=== PATIENT | female | born 1975 | race Native Hawaiian/Other Pacific Islander ===

== ENCOUNTER 2022-04-23 13:09 | Emergency (ER) | payer OTHER ==
--- NOTE | 2022-04-23 13:11 | ERPHSYRPT ---
- History of Present Illness Time Seen by Provider: 04/23/22 13:11 Historian: patient Exam Limitations: no limitations Physician History: This is an overweight 47-year-old white female has a history of diverticulitis and presents with 1 week history of upper abdominal pain. It is sharp and crampy. It is in the exact same place and described in the exact same way as h er other episode of diverticulitis. Patient denies diarrhea. She denies nausea vomiting. She has no chest pain. She does not have shortness of breath. Patient was dropped off by family member. Patient states she has some problems with codeine but has never had a problem with hydrocodone and Dilaudid in the past. Patient has a history of hypertension and hypothyroidism. The patient states that the pain has worsened over the last week. She stated that she had extensive work-up in the past and the diagnosis was diverticulitis. Timing/Duration: week(s) (1) Abdominal Pain Onset Location: RUQ, LUQ, epigastric Pain Radiation: no radiation Severity of Pain-Max: moderate Severity of Pain-Current: moderate Modifying Factors: Improves With: nothing Associated Symptoms: denies symptoms Previous symptoms: same symptoms as today, no recent treatment Allergies/Adverse Reactions: codeine Allergy (Verified 04/23/22 13:27) Home Medications: Levothyroxine Sodium 1 ea DAILY 04/23/22 [History] Lisinopril 10 mg [Zestril 10 MG] 10 mg PO DAILY 04/23/22 [History] Ropinirole HCl 1 mg PO DAILY 04/23/22 [History] Travel Risk - International Travel Have you traveled outside of the country in past 3 weeks: No - Coronavirus Screening Are you exhibiting any of the following symptoms?: No Close contact with a COVID-19 positive Pt in past 14-21 Days: No - Review of Systems Constitutional: No Symptoms Eyes: No Symptoms Ears, Nose, & Throat: No Symptoms Respiratory: No Symptoms Cardiac: No Symptoms Abdominal/Gastrointestinal: Abdominal Pain Genitourinary Symptoms: No Symptoms (Bilateral upper quadrants and epigastric region) Musculoskeletal: No Symptoms Skin: No Symptoms Neurological: No Symptoms Psychological: No Symptoms Endocrine: No Symptoms Hematologic/Lymphatic: No Symptoms Immunological/Allergic: No Symptoms All Other Systems: Reviewed and Negative - Past Medical History Pertinent Past Medical History: Yes - Past Surgical History Past Surgical History: Yes - Nursing Vital Signs Nursing Vital Signs: Initial Vital Signs Temperature 98.0 F 04/23/22 13:33 Pulse Rate 70 04/23/22 13:33 Respiratory Rate 18 04/23/22 13:33 Blood Pressure 110/74 04/23/22 13:33 O2 Sat by Pulse Oximetry 100 04/23/22 13:33 Pain Scale Pain Intensity 8 - Physical Exam General Appearance: no apparent distress, alert, anxiety, obese Eye Exam: PERRL/EOMI, eyes nml inspection Ears, Nose, Throat Exam: normal ENT inspection, moist mucous membranes Neck Exam: normal inspection, non-tender, supple, full range of motion Respiratory Exam: normal breath sounds, lungs clear, airway intact, No chest tenderness, No respiratory distress Cardiovascular Exam: regular rate/rhythm, normal heart sounds, normal peripheral pulses Gastrointestinal/Abdomen Exam: soft, normal bowel sounds, tenderness (Bilateral upper quadrants and epigastric region to palpation), guarding (Palpation of bilateral upper quadrants and epigastric region) Pelvic Exam: not done Rectal Exam: not done Back Exam: normal inspection, normal range of motion, No CVA tenderness, No vert ebral tenderness Extremity Exam: normal inspection, normal range of motion, pelvis stable Neurologic Exam: alert, oriented x 3, cooperative, 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 as tested, normal mood/affect, nml cerebellar function, nml station & gait, sensation nml Skin Exam: normal color, warm, dry Lymphatic Exam: No adenopathy SpO2 Interpretation: normal O2 Delivery: Room Air - Course Nursing assessment & vital signs reviewed: Yes Ordered Tests: Active Orders 24 hr Category Date Time Status IV Insertion STAT Care 04/23/22 13:53 Active ABDOMEN AND PELVIS W/0 CONTRAS [CT] Stat Exams 04/23/22 13:53 Completed AMYLASE Stat Lab 04/23/22 13:52 Completed CBC W DIFF Stat Lab 04/23/22 13:52 Completed CMP Stat Lab 04/23/22 13:52 Completed LIPASE Stat Lab 04/23/22 13:52 Completed Lactic Acid Stat Lab 04/23/22 13:59 Completed UA W/RFX CULTURE Stat Lab 04/23/22 Completed Medication Summary Generic Name Dose Route Start Last Admin Trade Name Freq PRN Reason Stop Dose Admin Sodium Chloride 1,000 mls @ 999 mls/hr 04/23/22 13:53 Sodium Chloride 0.9% 1000 Ml IV 04/23/22 14:53 .[id number] STA Discontinued Medications Generic Name Dose Route Start Last Admin Trade Name Jarethq PRN Reason Stop Dose Admin Hydromorphone HCl 1 mg 04/23/22 13:53 Hydromorphone 1 Mg/1ml Inj 1 Mg/Ml Syringe IV 04/23/22 13:54 STAT ONE Ondansetron HCl 4 mg 04/23/22 13:53 Ondansetron Hcl 4 Mg/2 Ml Vial IV 04/23/22 13:54 STAT ONE Lab/Rad Data: Laboratory Result Diagrams 04/23/22 13:52 04/23/22 13:52 Laboratory Results 04/23/22 04/23/22 04/23/22 Range/Units Unknown 13:59 13:52 WBC (4.0-10.5) x10^3/uL RBC (4.1-5.4) x10^6/uL Hgb (12.0-16.0) g/dL Hct (35-47) % MCV (78-100) fL MCH (26-32) pg MCHC (32-36) g/dL RDW (11.5-14.0) % Plt Count (150-450) x10^3/uL MPV (7.5-11.0) fL Gran % (36.0-66.0) % Immature Gran % (Auto) (0.00-0.4) % Nucleat RBC Rel Count (0.00-0.1) % Eos # (Auto) (0-0.5) x10^3/uL Immature Gran # (Auto) (0.00-0.03) x10^3u/L Absolute Lymphs (auto) (1.0-4.6) x10^3/uL Absolute Monos (auto) (0.0-1.3) x10^3/uL Absolute Nucleated RBC (0.00-0.01) x10^3u/L Lymphocytes % (24.0-44.0) % Monocytes % (0.0-12.0) % Eosinophils % (0.00-5.0) % Basophils % (0.0-0.4) % Absolute Granulocytes (1.4-6.9) x10^3/uL Basophils # (0-0.4) x10^3/uL Sodium 136 L (137-145) mmol/L Potassium 4.0 (3.5-5.1) mmol/L Chloride 105 (98-107) mmol/L Carbon Dioxide 26 (22-30) mmol/L Anion Gap 9.6 (5-15) MEQ/L BUN 13 (7-17) mg/dL Creatinine 0.71 (0.52-1.04) mg/dL Estimated GFR > 60.0 ML/MIN Glucose 74 (74-106) mg/dL Lactic Acid 0.6 (0.4-2.0) Calcium 9.1 (8.4-10.2) mg/dL Total Bilirubin 0.50 (0.2-1.3) mg/dL AST 52 H (14-36) U/L ALT 40 H (0-35) U/L Alkaline Phosphatase 108 (38-126) U/L Serum Total Protein 7.8 (6.3-8.2) g/dL Albumin 4.1 (3.5-5.0) g/dL Amylase 50 (30-110) U/L Lipase 139 (23-300) U/L Urinalys Dipstick Clnc MAIN LAB Urine Color YELLOW (YELLOW) Urine Appearance CLEAR (CLEAR) Urine pH 5.5 (5-6) Ur Specific [place] >=1.030 A (1.005-1.025) POC Urine Protein Conf NEGATIVE (Negative) Urine Ketones NEGATIVE (NEGATIVE) Urine Nitrite NEGATIVE (NEGATIVE) Urine Bilirubin NEGATIVE (NEGATIVE) Urine Urobilinogen 0.2 (0-1) mg/dL Urine Leukocytes NEGATIVE (NEGATIVE) Urine WBC (Auto) 0-2 (0-5) /HPF Urine RBC (Auto) NONE (0-2) /HPF U Epithel Cells (Auto) RARE (FEW) /HPF Urine Bacteria (Auto) RARE (NEGATIVE) /HPF Urine RBC NEGATIVE (0-5) Jeremie/ul Urine Mucus (Auto) SLIGHT A (NEGATIVE) /HPF Ur Culture Indicated? NO Urine Glucose NEGATIVE (NEGATIVE) mg/dL 04/23/22 Range/Units 13:52 WBC 5.3 (4.0-10.5) x10^3/uL RBC 3.99 L (4.1-5.4) x10^6/uL Hgb 12.3 (12.0-16.0) g/dL Hct 38.1 (35-47) % MCV 95.5 (78-100) fL MCH 30.8 (26-32) pg MCHC 32.3 (32-36) g/dL RDW 13.0 (11.5-14.0) % Plt Count 92 L (150-450) x10^3/uL MPV 12.2 H (7.5-11.0) fL Gran % 53.8 (36.0-66.0) % Immature Gran % (Auto) 0.2 (0.00-0.4) % Nucleat RBC Rel Count 0.0 (0.00-0.1) % Eos # (Auto) 0.03 (0-0.5) x10^3/uL Immature Gran # (Auto) 0.01 (0.00-0.03) x10^3u/L Absolute Lymphs (auto) 1.94 (1.0-4.6) x10^3/uL Absolute Monos (auto) 0.45 (0.0-1.3) x10^3/uL Absolute Nucleated RBC 0.00 (0.00-0.01) x10^3u/L Lymphocytes % 36.5 (24.0-44.0) % Monocytes % 8.5 (0.0-12.0) % Eosinophils % 0.6 (0.00-5.0) % Basophils % 0.4 (0.0-0.4) % Absolute Granulocytes 2.86 (1.4-6.9) x10^3/uL Basophils # 0.02 (0-0.4) x10^3/uL Sodium (137-145) mmol/L Potassium (3.5-5.1) mmol/L Chloride (98-107) mmol/L Carbon Dioxide (22-30) mmol/L Anion Gap (5-15) MEQ/L BUN (7-17) mg/dL Creatinine (0.52-1.04) mg/dL Estimated GFR ML/MIN Glucose (74-106) mg/dL Lactic Acid (0.4-2.0) Calcium (8.4-10.2) mg/dL Total Bilirubin (0.2-1.3) mg/dL AST (14-36) U/L ALT (0-35) U/L Alkaline Phosphatase (38-126) U/L Serum Total Protein (6.3-8.2) g/dL Albumin (3.5-5.0) g/dL Amylase (30-110) U/L Lipase (23-300) U/L Urinalys Dipstick Clnc Urine Color (YELLOW) Urine Appearance (CLEAR) Urine pH (5-6) Ur Specific [place] (1.005-1.025) POC Urine Protein Conf (Negative) Urine Ketones (NEGATIVE) Urine Nitrite (NEGATIVE) Urine Bilirubin (NEGATIVE) Urine Urobilinogen (0-1) mg/dL Urine Leukocytes (NEGATIVE) Urine WBC (Auto) (0-5) /HPF Urine RBC (Auto) (0-2) /HPF U Epithel Cells (Auto) (FEW) /HPF Urine Bacteria (Auto) (NEGATIVE) /HPF Urine RBC (0-5) Jeremie/ul Urine Mucus (Auto) (NEGATIVE) /HPF Ur Culture Indicated? Urine Glucose (NEGATIVE) mg/dL - Progress Progress: improved, re-examined Progress Note: 04/23/22 14:39 CAT scan of the abdomen pelvis without contrast shows hepatosplenomegaly and a small right adrenal adenoma. No acute intra-abdominal or intrapelvic ab normalities. Medical decision making: This patient states that the symptoms she is having is exactly the symptoms that she had in the past. She was diagnosed and treated for diverticulitis and this resolved her symptoms. I reviewed the findings on the CAT scan with the patient. I also reviewed the results of her laboratory work-up. We decided together that I would go ahead and write for Cipro and Flagyl antibiotics and a couple days worth of [place] 5/325. She is to hold on the Cipro and Flagyl but if her symptoms persist beyond the next 24 to 48 hours or her symptoms worsen, she is to go ahead and take the antibiotics as prescribed. She is also to follow-up with her primary care physician. - Departure Departure Disposition: Home Clinical Impression: Upper abdominal pain, Adenoma of right adrenal gland, Hepatosplenomegaly Condition: Stable Critical Care Time: No Referrals: DOCTOR,NO FAMILY [Primary Care Provider] - Follow up/PCP as directed Additional Instructions: Drink plenty of clear liquids. Advance your diet slowly. If your symptoms persist beyond the next 24 to 48 hours, begin the Cipro and Flagyl antibiotics as prescribed. Follow-up with your primary care provider for further evaluation management. Prescriptions: Hydrocodone/APAP 5/325 [[place] 5/325 mg] 1 each PO Q8H PRN PRN #6 tablet MDD 3 PRN Reason: Pain Ciprofloxacin [Cipro 500 MG] 500 mg PO BID #14 tablet Metronidazole 500 mg [Flagyl 500 MG] 500 mg PO TID #21 tablet
[2022-04-23] MEDS ORDERED: Sodium Chloride 0.9% 1000 ML 1,000 ML IV STA (13:53)
[2022-04-23] MEDS ORDERED: Hydromorphone 1 mg/ml Injection IV ONE (13:53)
[2022-04-23] MEDS ORDERED: Zofran 4 MG/2 ML VIAL IV ONE (13:53)
[2022-04-23 14:04] LABS: Absolute Neutrophil Ct (ANC) 2.86 x10^3/uL (1.4-6.9); Basophil (Absolute #) 0.02 x10^3/uL (0-0.4); Eosinophil % 0.6 % (0.00-5.0); Eosinophil (Absolute #) 0.03 x10^3/uL (0-0.5); Hematocrit 38.1 % (35-47); Hemoglobin 12.3 g/dL (12.0-16.0); Lymphocyte (Absolute #) 1.94 x10^3/uL (1.0-4.6); Lymphocytes % 36.5 % (24.0-44.0); Mean Cell Volume 95.5 fL (78-100); Mean Corpuscular Hemoglobin 30.8 pg (26-32); Mean Corpuscular Hgb Concent. 32.3 g/dL (32-36); Mean Platelet Volume 12.2 fL (7.5-11.0); Monocyte (Absolute #) 0.45 x10^3/uL (0.0-1.3); Monocytes % 8.5 % (0.0-12.0); Neutrophil % 53.8 % (36.0-66.0); Platelet Count 92 x10^3/uL (150-450); Red Blood Count 3.99 x10^6/uL (4.1-5.4); White Blood Count 5.3 x10^3/uL (4.0-10.5)
[2022-04-23 14:06] LABS: Bacteria RARE /HPF (NEGATIVE); Epithelial Cells RARE /HPF (FEW); Mucus SLIGHT /HPF (NEGATIVE); WBC 0-2 /HPF (0-5)
[2022-04-23 14:07] LABS: Appearance CLEAR (CLEAR); Glucose NEGATIVE (NEGATIVE)
[2022-04-23 14:08] LABS: Bilirubin NEGATIVE (NEGATIVE); Dipstick done @ ? MAIN LAB; Ketones NEGATIVE (NEGATIVE); Nitrite NEGATIVE (NEGATIVE); Ph 5.5 (5-6); Protein,Urine Dip NEGATIVE (Negative); RBC NEGATIVE Ery/ul (0-5); Specific Gravity >=1.030 (1.005-1.025); Urobilinogen 0.2 mg/dL (0-1)
[2022-04-23 14:09] LABS: Urine Cultured Indicated? NO
[2022-04-23 14:18] LABS: ALBUMIN 4.1 g/dL (3.5-5.0); ALKALINE PHOSPHATASE 108 U/L (38-126); AMYLASE 50 U/L (30-110); ANION GAP 9.6 MEQ/L (5-15); BLOOD UREA NITROGEN 13 mg/dL (7-17); CHLORIDE 105 mmol/L (98-107); Calcium 9.1 mg/dL (8.4-10.2); Carbon Dioxide 26 mmol/L (22-30); Creatinine 1 0.71 mg/dL (0.52-1.04); EST GLOMERULAR FILTRATION RATE > 60.0 ML/MIN; Glucose 74 mg/dL (74-106); LIPASE 139 U/L (23-300); SGOT/AST 52 U/L (14-36); SGPT/ALT 40 U/L (0-35); SODIUM 136 mmol/L (137-145); Total Protein 7.8 g/dL (6.3-8.2)
--- NOTE | 2022-04-23 14:26 | XRAY ---
Indication: Midabdomen pain and nausea. Diverticulitis. Multiple contiguous axial images obtained through the abdomen and pelvis without contrast. Comparison: None Lung bases demonstrate minimal dependent atelectasis. Heart is not enlarged. Noncontrasted stomach and bowel loops appear nonobstructed with normal appendix. No diverticulosis/diverticulitis. Previous cholecystectomy and partial hysterectomy. Liver is enlarged measuring 22 cm. Also 14.7 cm splenomegaly. No free fluid/air. Incidental 1.3 x 2.8 cm right adrenal adenoma. Remaining liver, pancreas, spleen, left adrenal gland, kidneys, ureters, and bladder are unremarkable for noncontrast exam. Minimal aortic calcifications without AAA. Osseous structures intact with minimal degenerative changes throughout the spine and both hips. No ventral or inguinal hernias. Impression: 1. Hepatosplenomegaly, small right adrenal adenoma, minimal arteriosclerotic disease, and chronic bony findings. 2. Remaining CT abdomen/pelvis without contrast exam is negative.
[2022-04-23] MEDS ORDERED: Zofran 4 MG/2 ML VIAL ONE (14:50)
[2022-04-23] MEDS ORDERED: Hydromorphone 1 mg/ml Injection ONE (14:50)
[2022-04-23] MEDS ORDERED: Sodium Chloride 0.9% 1000 ML 1,000 ML ONE (14:50)
[2022-04-23 16:15] VITALS: BP 126/73; PULSE 65; O2SAT 97
[2022-04-23 20:20] LABS: Slide Review 1 YES
== END 2022-04-23 16:13 | disposition home or self-care (01) ==
LOC: ED 13:09
DX: R10.10 Upper abdominal pain, unspecified (principal); D35.01 Benign neoplasm of right adrenal gland; R16.2 Hepatomegaly with splenomegaly, not elsewhere classified; Z79.891 Long term (current) use of opiate analgesic; Z79.899 Other long term (current) drug therapy
CPT/HCPCS: 36000; 36415; 74176; 80053; 81015; 82150; 83605; 83690; 85025; 96374; 96375; 99284; J1170; J2405